=== PATIENT | male | born 1955 | race Caucasian/White ===

== ENCOUNTER 2018-04-05 12:43 | Outpatient (REF) | payer MEDICAID, SELFPAY ==
[2018-04-05 21:06] LABS: ALT 30 U/L (12-78); AST 30 U/L (15-37); Albumin 3.5 g/dL (3.4-5.0); Alkaline Phosphatase 131 U/L (46-116); Anion Gap 9.5 mmol/L (3-11); BUN 7 mg/dL (7-18); Bilirubin, Total 0.6 mg/dL (0.2-1.0); CO2 26.5 mmol/L (21.0-32.0); CREATININE 1.07 mg/dL (0.70-1.30); Calcium 9.4 mg/dL (8.5-10.1); Chloride 104 mmol/L (98-107); Glucose 94 mg/dL (70-100); Potassium 4.5 mmol/L (3.5-5.1); Sodium 140 mmol/L (136-145)
== END 2018-04-05 13:03 ==
LOC: NCHCN 12:43
PROVIDERS: PCP Internal Medicine; Visit Provider Internal Medicine
DX: I10 Essential (primary) hypertension (principal); K74.60 Unspecified cirrhosis of liver; M54.5 Low back pain
CPT/HCPCS: 80053

== ENCOUNTER 2018-07-18 11:50 | Outpatient (REF) | payer MEDICAID, SELFPAY ==
[2018-07-18 22:10] LABS: HCT 25.6 % (40.0-50.0); HGB 7.1 g/dL (13.5-17.5); Mean Corp. HGB Concentration 27.7 g/dL (32.0-36.0); Mean Corpuscular Hemoglobin 22.3 pg (27.0-33.0); Mean Corpuscular Volume 80.3 fL (80-95); RBC 3.19 m/cumm (4.50-6.00); RBC Distribution Width 19.1 % (11.8-14.1); White Blood Cell Count 3.24 k/cumm (4.4-10.8)
[2018-07-18 22:16] LABS: Iron 11 ug/dL (50-175); Total Iron Binding Capacity 362 ug/dL (250-450); Transferrin Sat 3 % (20-55)
[2018-07-18 22:32] LABS: Ferritin 7 ng/mL (8-388)
[2018-07-18 23:12] LABS: Absolute Eosinophil Count 0.03 k/cumm (0.0-0.7); Absolute Lymphocyte Count 0.45 k/cumm (1.2-3.4); Absolute Monocyte Count 0.23 k/cumm (0.11-0.7); Absolute Neutrophil Count 2.53 k/cumm (1.2-6.7); Atypical Lymphocytes % 0
[2018-07-18 23:13] LABS: Anisocytosis 2+; Diff Comment Manual Differential; Hypochromasia 3+; Microcytosis 1+; Poikilocytes 2+
[2018-07-18 23:19] LABS: Platelet Count 81 x1000/uL (130-400)
== END 2018-07-18 12:10 ==
LOC: NCHCN 11:50
PROVIDERS: PCP Internal Medicine; Visit Provider Internal Medicine
DX: D53.9 Nutritional anemia, unspecified (principal)
CPT/HCPCS: 82728; 83540; 83550; 85025

== ENCOUNTER 2018-09-12 11:34 | Outpatient (REF) | payer MEDICAID, SELFPAY ==
[2018-09-12 21:55] LABS: HCT 28.7 % (40.0-50.0); HGB 8.6 g/dL (13.5-17.5); Mean Corpuscular Hemoglobin 25.1 pg (27.0-33.0); Mean Corpuscular Volume 83.7 fL (80-95); Mean Platelet Volume 11.2 fL (8.0-11.0); RBC 3.43 m/cumm (4.50-6.00); RBC Distribution Width 19.4 % (11.8-14.1); Reticulocyte 1.3 % (0.5-2.4); White Blood Cell Count 4.43 k/cumm (4.4-10.8)
[2018-09-12 22:10] LABS: Platelet Count 96 x1000/uL (130-400)
== END 2018-09-12 11:54 ==
LOC: NCHCN 11:34
PROVIDERS: PCP Internal Medicine; Visit Provider Internal Medicine
DX: D64.9 Anemia, unspecified (principal)
CPT/HCPCS: 85027; 85045

== ENCOUNTER 2018-09-25 10:13 | Outpatient (REF) | payer MEDICAID, SELFPAY ==
[2018-09-25 21:40] LABS: HCT 30.4 % (40.0-50.0); Mean Corp. HGB Concentration 29.6 g/dL (32.0-36.0); Mean Corpuscular Hemoglobin 25.9 pg (27.0-33.0); Mean Corpuscular Volume 87.6 fL (80-95); RBC 3.47 m/cumm (4.50-6.00); RBC Distribution Width 21.1 % (11.8-14.1); Reticulocyte 1.8 % (0.5-2.4)
[2018-09-25 21:48] LABS: White Blood Cell Count 4.36 k/cumm (4.4-10.8)
[2018-09-25 22:36] LABS: Platelet Count 78 x1000/uL (130-400)
== END 2018-09-25 10:33 ==
LOC: NCHCN 10:13
PROVIDERS: PCP Internal Medicine; Visit Provider Internal Medicine
DX: D50.9 Iron deficiency anemia, unspecified (principal)
CPT/HCPCS: 85027; 85045

== ENCOUNTER 2019-01-25 11:26 | Outpatient (REF) | payer MEDICAID, SELFPAY ==
[2019-01-25 20:58] LABS: HCT 33.6 % (40.0-50.0); HGB 10.2 g/dL (13.5-17.5); Mean Corp. HGB Concentration 30.4 g/dL (32.0-36.0); Mean Corpuscular Hemoglobin 26.7 pg (27.0-33.0); Mean Platelet Volume 11.8 fL (8.0-11.0); RBC 3.82 m/cumm (4.50-6.00); RBC Distribution Width 22.4 % (11.8-14.1); White Blood Cell Count 4.38 k/cumm (4.4-10.8)
[2019-01-25 21:11] LABS: Ferritin 24 ng/mL (8-388)
[2019-01-25 21:39] LABS: Platelet Count 93 x1000/uL (130-400)
== END 2019-01-25 11:46 ==
LOC: NCHCN 11:26
PROVIDERS: PCP Internal Medicine; Visit Provider Internal Medicine
DX: D50.9 Iron deficiency anemia, unspecified (principal); D53.9 Nutritional anemia, unspecified
CPT/HCPCS: 85027; 82728

== ENCOUNTER 2019-04-08 10:52 | Outpatient (REF) | payer MEDICAID, SELFPAY ==
[2019-04-08 21:17] LABS: INR 1.2 (0.9-1.1); Prothrombin Time 11.9 sec (9.3-11.0)
[2019-04-08 21:37] LABS: HCT 37.9 % (40.0-50.0); HGB 12.7 g/dL (13.5-17.5); Mean Corp. HGB Concentration 33.5 g/dL (32.0-36.0); Mean Corpuscular Hemoglobin 32.3 pg (27.0-33.0); Mean Corpuscular Volume 96.4 fL (80-95); Mean Platelet Volume 11.1 fL (8.0-11.0); RBC 3.93 m/cumm (4.50-6.00); RBC Distribution Width 15.2 % (11.8-14.1); White Blood Cell Count 4.51 k/cumm (4.4-10.8)
[2019-04-08 21:53] LABS: Platelet Count 82 x1000/uL (130-400)
[2019-04-08 22:07] LABS: Calculated LDL 73 mg/dL; Cholesterol 141 mg/dL (50-200); Ferritin 47 ng/mL (8-388); HDL Cholesterol 57 mg/dL (40-60); Triglyceride 56 mg/dL (30-150)
== END 2019-04-08 11:12 ==
LOC: NCHCN 10:52
PROVIDERS: PCP Internal Medicine; Visit Provider Internal Medicine
DX: D50.9 Iron deficiency anemia, unspecified (principal); I10 Essential (primary) hypertension; E74.39 Other disorders of intestinal carbohydrate absorption; K74.60 Unspecified cirrhosis of liver; Z13.220 Encounter for screening for lipoid disorders
CPT/HCPCS: 80061; 85027; 82728; 85610

== ENCOUNTER 2019-04-17 21:37 | Outpatient (REF) | payer MEDICAID, SELFPAY ==
[2019-04-17 21:37] LABS: ALT 36 U/L (16-63); AST 32 U/L (15-37); Albumin 2.1 g/dL (3.4-5.0); Alkaline Phosphatase 106 U/L (46-116); Anion Gap 7.6 mmol/L (3-11); BUN 9 mg/dL (7-18); Bilirubin, Total 1.3 mg/dL (0.2-1.0); CO2 27.4 mmol/L (21.0-32.0); CREATININE 0.99 mg/dL (0.70-1.30); Calcium 8.8 mg/dL (8.5-10.1); Chloride 106 mmol/L (98-107); Glucose 94 mg/dL (70-100); Potassium 4.4 mmol/L (3.5-5.1); Sodium 141 mmol/L (136-145); Total Protein 6.7 g/dL (6.4-8.2)
== END 2019-04-17 21:57 ==
LOC: NCHCN 21:37
PROVIDERS: PCP Internal Medicine; Visit Provider Internal Medicine
DX: K74.60 Unspecified cirrhosis of liver (principal)
CPT/HCPCS: 80053

== ENCOUNTER 2019-06-26 13:55 | Outpatient (REF) | payer MEDICAID, SELFPAY ==
[2019-06-26 22:36] LABS: Abs Immature Grans 0.01 k/cumm (0.0-0.09); Absolute Basophil Count 0.03 k/cumm (0.0-0.2); Absolute Eosinophil Count 0.13 k/cumm (0.0-0.7); Absolute Monocyte Count 0.31 k/cumm (0.11-0.7); Absolute Neutrophil Count 3.33 k/cumm (1.2-6.7); Basophils % 0.7; Eosinophils % 2.9; HCT 39.3 % (40.0-50.0); HGB 13.4 g/dL (13.5-17.5); Immature Grans % 0.2 %; Lymphocytes % 13.6; Mean Corp. HGB Concentration 34.1 g/dL (32.0-36.0); Mean Corpuscular Hemoglobin 33.6 pg (27.0-33.0); Mean Corpuscular Volume 98.5 fL (80-95); Mean Platelet Volume 11.2 fL (8.0-11.0); Neutrophils % 75.6; RBC 3.99 m/cumm (4.50-6.00); RBC Distribution Width 13.4 % (11.8-14.1); White Blood Cell Count 4.41 k/cumm (4.4-10.8)
[2019-06-26 23:14] LABS: Platelet Count 80 x1000/uL (130-400)
[2019-06-26 23:23] LABS: COMMENT (LAB VIEW ONLY) 17.63 mg/dL
[2019-06-26 23:24] LABS: Anion Gap 9.5 mmol/L (3-11); BUN 11 mg/dL (7-18); CO2 27.5 mmol/L (21.0-32.0); Calcium 9.2 mg/dL (8.5-10.1); Chloride 107 mmol/L (98-107); Ferritin 62 ng/mL (26-388); Glucose 103 mg/dL (74-106); Potassium 3.6 mmol/L (3.5-5.1); Sodium 144 mmol/L (136-145)
== END 2019-06-26 14:15 ==
LOC: NCHCN 13:55
PROVIDERS: PCP Internal Medicine; Visit Provider Internal Medicine
DX: E74.39 Other disorders of intestinal carbohydrate absorption (principal); D50.9 Iron deficiency anemia, unspecified; I10 Essential (primary) hypertension
CPT/HCPCS: 80048; 82043; 82570; 82728; 85025

== ENCOUNTER 2020-11-16 17:58 | Outpatient (REF) | payer OTHER, MEDICAID, SELFPAY ==
[2020-11-16 20:11] LABS: Abs Immature Grans 0.02 10^3/uL (0.0-0.06); Absolute Basophil Count 0.03 10^3/uL (0.0-0.2); Absolute Eosinophil Count 0.07 10^3/uL (0.0-0.7); Absolute Lymphocyte Count 0.65 10^3/uL (1.2-3.4); Absolute Monocyte Count 0.35 10^3/uL (0.1-0.8); Absolute Neutrophil Count 3.97 10^3/uL (1.2-6.7); Basophils % 0.6; Eosinophils % 1.4; HCT 38.1 % (40.0-50.0); HGB 13.3 g/dL (13.5-17.5); Immature Grans % 0.4; Lymphocytes % 12.8; MCH 33.6 pg (27.0-33.0); MCHC 34.9 % (32.0-36.0); MCV 96.2 fL (80-95); Monocytes % 6.9; Neutrophils % 77.9; Nucleated RBC 0 %; Platelet Count 73 10^3/uL (130-400); RBC 3.96 10^6/uL (4.36-5.78); RDW 12.3 % (11.8-14.1); RDW-SD 43.6 fL; WBC 5.09 10^3/uL (4.4-10.8)
[2020-11-16 20:33] LABS: ALT 41 U/L (16-63); AST 41 U/L (15-37); Albumin 3.7 g/dL (3.4-5.0); Alkaline Phosphatase 106 U/L (46-116); Anion Gap 9.5 mmol/L (3-11); BUN 14 mg/dL (7-18); Bilirubin, Total 1.1 mg/dL (0.2-1.0); CO2 25.5 mmol/L (21.0-32.0); CREATININE 1.1 mg/dL (0.70-1.30); Calcium 9.3 mg/dL (8.5-10.1); Chloride 108 mmol/L (98-107); Ferritin 140 ng/mL (26-388); Glucose 104 mg/dL (74-106); Potassium 4.2 mmol/L (3.5-5.1); Sodium 143 mmol/L (136-145); Total Protein 7.1 g/dL (6.4-8.2)
[2020-11-17 17:49] LABS: PSA, Screening 0.4 ng/mL (0.0-4.5)
== END 2020-11-16 17:59 | disposition home or self-care (01) ==
LOC: NCHCN 17:58
PROVIDERS: PCP Internal Medicine; Visit Provider Internal Medicine
DX: D50.9 Iron deficiency anemia, unspecified (principal); R53.83 Other fatigue; K74.60 Unspecified cirrhosis of liver; Z12.5 Encounter for screening for malignant neoplasm of prostate
CPT/HCPCS: 80053; 84153; 82728; 85025

== ENCOUNTER 2021-05-10 14:58 | Outpatient (REF) | payer OTHER, MEDICAID, SELFPAY ==
[2021-05-10 16:15] LABS: Abs Immature Grans 0.01 10^3/uL (0.0-0.06); Absolute Basophil Count 0.03 10^3/uL (0.0-0.2); Absolute Eosinophil Count 0.12 10^3/uL (0.0-0.7); Absolute Lymphocyte Count 0.55 10^3/uL (1.2-3.4); Absolute Monocyte Count 0.34 10^3/uL (0.1-0.8); Basophils % 0.6; Eosinophils % 2.6; HCT 39.6 % (40.0-50.0); HGB 13.6 g/dL (13.5-17.5); Immature Grans % 0.2; Lymphocytes % 11.8; MCH 33.6 pg (27.0-33.0); MCHC 34.3 % (32.0-36.0); MCV 97.8 fL (80-95); MPV 11.7 fL (8.0-11.0); Monocytes % 7.3; Neutrophils % 77.5; Nucleated RBC 0 %; RBC 4.05 10^6/uL (4.36-5.78); RDW 12.8 % (11.8-14.1); RDW-SD 45.8 fL; WBC 4.65 10^3/uL (4.4-10.8)
[2021-05-10 16:37] LABS: Platelet Count 72 10^3/uL (130-400)
[2021-05-10 16:55] LABS: INR 1.1 (0.9-1.1); Prothrombin Time 11.4 sec (9.3-11.0)
[2021-05-10 16:58] LABS: ALT 31 U/L (16-63); AST 32 U/L (15-37); Albumin 3.6 g/dL (3.4-5.0); Alkaline Phosphatase 126 U/L (46-116); Anion Gap 8.3 mmol/L (3-11); BUN 11 mg/dL (7-18); Bilirubin, Total 0.9 mg/dL (0.2-1.0); CO2 28.7 mmol/L (21.0-32.0); CREATININE 0.9 mg/dL (0.70-1.30); Calcium 9.1 mg/dL (8.5-10.1); Chloride 106 mmol/L (98-107); Ferritin 125 ng/mL (26-388); Glucose 116 mg/dL (74-106); Potassium 4.2 mmol/L (3.5-5.1); Sodium 143 mmol/L (136-145)
== END 2021-05-10 14:59 | disposition home or self-care (01) ==
LOC: NCHCN 14:58
PROVIDERS: PCP Internal Medicine; Visit Provider Internal Medicine
DX: K74.60 Unspecified cirrhosis of liver (principal)
CPT/HCPCS: 80053; 82728; 85025; 85610

== ENCOUNTER 2022-03-21 16:07 | Outpatient (REF) | payer OTHER, MEDICAID, SELFPAY ==
[2022-03-21 16:41] LABS: MCH 33.6 pg (27.0-33.0); MCV 96 fL (80-95); MPV 11.5 fL (8.0-11.0); Platelet Count 77 10^3/uL (130-400); RBC 4.17 10^6/uL (4.36-5.78); RDW-SD 46.4 fL; WBC 6.44 10^3/uL (4.4-10.8)
[2022-03-21 18:55] LABS: ALT 51 U/L (16-63); AST 50 U/L (15-37); Albumin 3.8 g/dL (3.4-5.0); Alkaline Phosphatase 135 U/L (46-116); BUN 11 mg/dL (7-18); Bilirubin, Total 0.9 mg/dL (0.2-1.0); CREATININE 1.1 mg/dL (0.70-1.30); Calcium 9.1 mg/dL (8.5-10.1); Chloride 106 mmol/L (98-107); Estimated GFR 73.58 (mL/min/1.73m2); Glucose 106 mg/dL (74-106); Potassium 4.4 mmol/L (3.5-5.1); Sodium 141 mmol/L (136-145); Total Protein 7.5 g/dL (6.4-8.2)
== END 2022-03-21 16:08 | disposition home or self-care (01) ==
LOC: NCHCN 16:07
PROVIDERS: PCP Internal Medicine; Visit Provider Internal Medicine
DX: K74.60 Unspecified cirrhosis of liver (principal); I10 Essential (primary) hypertension
CPT/HCPCS: 80053; 85027

== ENCOUNTER 2023-03-27 20:09 | Outpatient (REF) | payer OTHER, SELFPAY ==
[2023-03-27 16:19] LABS: HCT 38.5 % (40.0-50.0); HGB 13.3 g/dL (13.5-17.5); MCH 33.8 pg (27.0-33.0); MCHC 34.5 % (32.0-36.0); MCV 98 fL (80-95); MPV 11.4 fL (8.0-11.0); RBC 3.94 10^6/uL (4.36-5.78); RDW 12.9 % (11.8-14.1); RDW-SD 46.2 fL; WBC 4.49 10^3/uL (4.4-10.8)
[2023-03-27 16:29] LABS: ALT 33 U/L (16-63); AST 31 U/L (15-37); Albumin 3.4 g/dL (3.4-5.0); Alkaline Phosphatase 94 U/L (46-116); Anion Gap 7.6 mmol/L (3-11); BUN 9 mg/dL (7-18); Bilirubin, Total 1.2 mg/dL (0.2-1.0); CO2 26.4 mmol/L (21.0-32.0); Calcium 9.4 mg/dL (8.5-10.1); Calculated LDL 109 mg/dL (<100); Chloride 106 mmol/L (98-107); Cholesterol 183 mg/dL (<200); Estimated GFR 81.98 (mL/min/1.73m2); Glucose 105 mg/dL (74-106); HDL Cholesterol 64 mg/dL (40-60); Potassium 3.9 mmol/L (3.5-5.1); Sodium 140 mmol/L (136-145); Total Protein 7.3 g/dL (6.4-8.2); Triglyceride 52 mg/dL (<150)
[2023-03-27 16:46] LABS: Platelet Count 67 10^3/uL (130-400)
== END 2023-03-27 20:10 | disposition home or self-care (01) ==
LOC: NCHCN 20:09
PROVIDERS: PCP Internal Medicine; Visit Provider Internal Medicine
DX: Z00.00 Encounter for general adult medical examination without abnormal findings (principal); Z13.220 Encounter for screening for lipoid disorders; I10 Essential (primary) hypertension; R18.8 Other ascites; F10.20 Alcohol dependence, uncomplicated; E61.2 Magnesium deficiency
CPT/HCPCS: 80053; 80061; 85027; 83735

== ENCOUNTER 2023-11-17 14:44 | Outpatient (REF) | payer OTHER, MEDICAID, SELFPAY ==
[2023-11-17 14:51] LABS: HCT 41.8 % (40.0-50.0); HGB 14.5 g/dL (13.5-17.5); MCH 34.1 pg (27.0-33.0); MCHC 34.7 % (32.0-36.0); MCV 98 fL (80-95); MPV 10.7 fL (8.0-11.0); RBC 4.25 10^6/uL (4.36-5.78); RDW 12.7 % (11.8-14.1); WBC 4.57 10^3/uL (4.4-10.8)
[2023-11-17 15:17] LABS: ALT 35 U/L (16-63); AST 31 U/L (15-37); Albumin 3.8 g/dL (3.4-5.0); Alkaline Phosphatase 86 U/L (46-116); Anion Gap 7.6 mmol/L (3-11); BUN 13 mg/dL (7-18); CO2 28.4 mmol/L (21.0-32.0); CREATININE 1.1 mg/dL (0.70-1.30); Calcium 9.5 mg/dL (8.5-10.1); Calculated LDL 113 mg/dL (<100); Chloride 107 mmol/L (98-107); Cholesterol 187 mg/dL (<200); Estimated GFR 72.67 (mL/min/1.73m2); Ferritin 150 ng/mL (26-388); Glucose 125 mg/dL (74-106); HDL Cholesterol 53 mg/dL (40-60); Potassium 4.5 mmol/L (3.5-5.1); Sodium 143 mmol/L (136-145); Total Protein 7.8 g/dL (6.4-8.2); Triglyceride 107 mg/dL (<150)
[2023-11-17 15:19] LABS: Platelet Count 77 10^3/uL (130-400)
== END 2023-11-17 14:45 | disposition home or self-care (01) ==
LOC: NCHCN 14:44
PROVIDERS: Visit Provider Internal Medicine
DX: D50.9 Iron deficiency anemia, unspecified (principal); K74.60 Unspecified cirrhosis of liver; E66.8 Other obesity
CPT/HCPCS: 80053; 80061; 85027; 82728

== ENCOUNTER 2024-11-27 14:18 | Outpatient (REF) | payer OTHER, MEDICAID, SELFPAY ==
[2024-11-27 15:29] LABS: HCT 41.2 % (40.0-50.0); MCH 32.9 pg (27.0-33.0); MCV 97 fL (80-95); RBC 4.25 10^6/uL (4.36-5.78); RDW 11.9 % (11.8-14.1); RDW-SD 42.5 fL; WBC 5.57 10^3/uL (4.4-10.8)
[2024-11-27 15:39] LABS: ALT 38 U/L (16-63); AST 34 U/L (15-37); Albumin 3.8 g/dL (3.4-5.0); Alkaline Phosphatase 114 U/L (46-116); Anion Gap 8.5 mmol/L (3-11); BUN 10 mg/dL (7-18); Bilirubin, Total 1.1 mg/dL (0.2-1.0); CO2 28.5 mmol/L (21.0-32.0); CREATININE 1.1 mg/dL (0.70-1.30); Calcium 9.3 mg/dL (8.5-10.1); Calculated LDL 70 mg/dL (<100); Chloride 102 mmol/L (98-107); Cholesterol 139 mg/dL (<200); Estimated GFR 72.22 (mL/min/1.73m2); Ferritin 162 ng/mL (26-388); Glucose 111 mg/dL (74-106); HDL Cholesterol 53 mg/dL (>or=40); Sodium 139 mmol/L (136-145); Total Protein 7.7 g/dL (6.4-8.2); Triglyceride 83 mg/dL (<150)
[2024-11-27 15:41] LABS: Platelet Count 88 10^3/uL (130-400)
[2024-11-28 12:15] LABS: PSA, Screening 0.5 ng/mL (<=6.5)
== END 2024-11-27 14:19 | disposition home or self-care (01) ==
LOC: NCHCN 14:18
PROVIDERS: Visit Provider Internal Medicine
DX: K74.60 Unspecified cirrhosis of liver (principal); D50.9 Iron deficiency anemia, unspecified; E78.5 Hyperlipidemia, unspecified; Z12.5 Encounter for screening for malignant neoplasm of prostate
CPT/HCPCS: 80053; 80061; 84153; 85027; 82728